=== PATIENT | female | born 1965 | race African-American/Black ===

== ENCOUNTER → 2025-01-26 | Outpatient (CLI) | payer OTHER, MEDICAID ==
[~2025-01-26] MED LIST: DULO20CA PO; GABA-1250; HYDR-1421 PO; LORA-1123 PO
== END | disposition home or self-care (01) ==
LOC: Rad HDHVI 14:06
PROVIDERS: ATTEND Internal Medicine Cardiovascular Disease
DX: R06.02 Shortness of breath (principal); Z90.13 Acquired absence of bilateral breasts and nipples
CPT/HCPCS: 93306

== ENCOUNTER 2025-06-04 14:15 | Outpatient (CLI) | payer OTHER, MEDICAID ==
[~2025-06-04] VITALS: Ht 152.4 cm; Wt 86.2 kg
[2025-06-04] MEDS ORDERED: ADENOSINE 90 MG/30 ML INJ IV ONE (15:54)
--- NOTE | 2025-06-08 16:06 | DVHSR ---
APPROVED REPORT Exam: Nuclear Stress Test Indication: Dyspnea Ht: 5 ft 0 in Wt: 190 lbs BSA: 1.83 m2 HR: 96 bpm BP: 129/91 mmHg BMI: 37.10 Rhythm: NSR Medical History Medical History: SOB, Abnormal EKG, Diabetes, Hypercholesterolemia Medications: Levothyroxine, Cetirizine, Gabapentin, Rinvoq, Paroxetine, Leflunomide, Albuterol hfa, Pilocarpine, Hwsfvbaipd-kvwmcdsecgmye-qqzwdios, Vit D2, Metformin, Oxybutynin, Folic acid Allergies: Codeine Stress Test Details Stress Test: Exercise stress testing was performed using a Wilberto protocol. HR Resting HR: 96 bpm Max Heart Rate (APMHR): 161.533629 bpm Max HR Achieved: 150 bpm Target HR (85% APMHR): 136.515584 bpm % of APMHR: 93.17 Recovery HR: 90 bpm HR response to stress: accelerated BP Resting BP: 129/91 mmHg Max BP: 186/120 mmHg Recovery BP: 147/90 mmHg BP response to stress: Exaggerated response ECG Resting ECG: Sinus Rhythm Stress ECG: Sinus Tachycardia Arrhythmia: occasional PACs and PVCs Recovery ECG: Sinus Rhythm Clinical Reason for Termination: target HR achieved Stress Symptoms: Dyspnea Exercise duration: 3 min 00 sec Exercise capacity: 4.6 METs Dyspnea improved during recovery. Stress ECG Conclusion NON ISCHEMIC CLINICAL RESPONSE NON ISCHEMIC ECG RESPONSE NON ISCHEMIC CARDIOLITE IMAGES EF >55% NM EXAM: Myocardial Perfusion REST/STRESS Imaging Protocol: Rest Tc-99m/Stress Tc-99m 1 day Resting Data Rest SPECT myocardial perfusion imaging was performed in supine position 30 minutes following the intravenous injection of 10.81 mCi of Tc-99m Sestamibi. Time of rest injection: 1430 Date: 06/04/2025 Time of rest imagin Date: 06/04/2025 Administration Route: IV Administration Site: Right AC Exercise Stress At peak stress, the patient was injected intravenously with 32.9 mCi of Tc-99m Sestamibi. Time of stress injection: 1528 Date: 06/04/2025 Time of stress imagin Date: 06/04/2025 Administration Route: IV Administration Site: Right AC Heart Rate at time of stress injection: 148 bpm. Patient continued to exercise for 1 minute(s). Gated Stress SPECT was performed 15 minutes after stress injection. The images were gated to evaluate regional wall motion and calculate left ventricular ejection fraction. Comments Cardiolite injection at 1 minute, 55 seconds into test. Nuclear Conclusion NON ISCHEMIC CLINICAL RESPONSE NON ISCHEMIC ECG RESPONSE NON ISCHEMIC CARDIOLITE IMAGES EF >55%
== END 2025-06-04 17:00 | disposition home or self-care (01) ==
LOC: Rad HDHVI 14:15
PROVIDERS: ATTEND Internal Medicine Cardiovascular Disease
DX: R00.0 Tachycardia, unspecified (principal); I49.1 Atrial premature depolarization; I49.3 Ventricular premature depolarization; Z13.6 Encounter for screening for cardiovascular disorders; R94.31 Abnormal electrocardiogram [ECG] [EKG]; R06.02 Shortness of breath; E11.9 Type 2 diabetes mellitus without complications; E78.00 Pure hypercholesterolemia, unspecified; J45.909 Unspecified asthma, uncomplicated; Z82.49 Family history of ischemic heart disease and other diseases of the circulatory system
CPT/HCPCS: 78452; 93017; A9500; 96374; J0153